=== PATIENT | female | born 1965 | race Caucasian/White ===

== ENCOUNTER 2019-12-14 16:47 | Emergency (ER) | payer SELFPAY ==
[2019-12-14 17:04] VITALS: BP 141/76; PULSE 97; RESP 16; TEMP 36.2; O2SAT 98
--- NOTE | 2019-12-14 17:13 | ED.SKABFB ---
HPI - Skin/Abscess/Foreign Bdy General Chief complaint: Skin/Abscess/Foreign Body Stated complaint: laceration Time Seen by Provider: 12/14/19 17:13 Source: patient Mode of arrival: ambulatory Limitations: no limitations History of Present Illness HPI narrative: Adamaris Simeon is a 54 yo female with a PMH ofheart murmur and smoking, [facility] with a 1/2 cm lac of the left hand between fingers 4 and 5, or webbing of hand. Controlled bleeding. Tetanus current Related Data Home Medications Medication Instructions Recorded Confirmed No Home Medications 12/14/19 12/14/19 Allergies Allergy/AdvReac Type Severity Reaction Status Date / Time No Known Allergies Allergy Unverified 04/07/16 16:33 Review of Systems Review of Systems: Narrative: CONSTITUTIONAL: Denies fever, chills, sweats. EYES: Denies visual changes, redness, discharge. ENT: Denies rhinorrhea, congestion, sore throat, otalgia. CARDIOVASCULAR: Denies chest pain, palpitations, edema. RESPIRATORY: Denies dyspnea, wheezing, cough GASTROINTESTINAL: Denies abdominal pain, nausea, vomiting, diarrhea. GENITOURINARY: Denies dysuria, hematuria, abnormal discharge SKIN: Denies rash or itching. Small lack on dorsum of hand between fingers 4-5 near webbing NEUROLOGIC: Denies numbness, or focal weakness. PSYCHIATRIC: Denies anxiety or depression. [facility] Family History Family History Other No active medical problems Social History Social History (Updated 12/14/19 @ 17:16 by Alayna Sherman CNP) Smoking status: Current every day smoker Alcohol intake: never Comments At time of signature, I agree with nursing past medical, surgical, social and family history. There is no relevant family history pertinent to the presenting complaint. Elevated BP here today- referred to pcp for follow up Exam Narrative: Exam Narrative: GENERAL: This is a well-nourished, well-developed patient, in mild distress. HEAD: normocephalic, atraumatic. EYES: clear/white. Vision is grossly intact. EARS: External ears normal, . Hearing grossly intact. NOSE: External nose normal without nasal discharge, nares without redness, no rhinorrhea. THROAT: Mucous membranes moist, NECK: Neck supple, CARDIOVASCULAR: Regular rate and rhythm without murmurs, gallops, or rubs. RESPIRATORY: Clear to auscultation. Breath sounds equal bilaterally. No wheezes, rales, or rhonchi. GASTROINTESTINAL: Abdomen soft, SKIN: warm, intact with no suspicious lesions ; small laceration dorsum L hand, 1.5 cm superficial , near webbing fingers 4/5 NEURO: awake, alert, and oriented to person, place and time. There were no obvious focal neurologic abnormalities. Steady gait EXTREMITIES: Normal range of motion. BACK: Nontender without deformity Course Course Emergency Course: superficial lac repair follow up with pcp Vital Signs Vital signs: Vital Signs Temperature 97.2 F L 12/14/19 17:04 Pulse Rate 97 12/14/19 17:04 Respiratory Rate 16 12/14/19 17:04 Blood Pressure 141/76 H 12/14/19 17:04 Pulse Oximetry 98 12/14/19 17:04 Temperature 97.2 F L 12/14/19 17:04 Pulse Rate 97 12/14/19 17:04 Respiratory Rate 16 12/14/19 17:04 Blood Pressure 141/76 H 12/14/19 17:04 Pulse Oximetry 98 12/14/19 17:04 Procedures Laceration Laceration 1: Date: 12/14/19 Time: 17:30 Site: upper extremity Side (If applicable): left Size (cm): 1.5 Description: linear Depth: simple, single layer Pre-repair: irrigated ====== Skin Level ====== Skin layer closed with: dermabond and steri strips ====== Subcutaneous Layer ====== ====== Muscle Layer ====== ====== Tendon Layer ====== Dressing: Hand dressed after glue dried. MDM - Skin/Abscess/Foreign Bdy Differential Diagnosis Differential diagnosis: Likely other (laceration of denton
== END 2019-12-14 17:56 | disposition home or self-care (01) ==
PROVIDERS: Emergency Provider Nurse Practitioner
DX: S61.412A Laceration without foreign body of left hand, initial encounter (principal); F17.210 Nicotine dependence, cigarettes, uncomplicated; X58.XXXA Exposure to other specified factors, initial encounter
CPT/HCPCS: 12001; 99212; G0463

== ENCOUNTER 2021-09-29 11:47 | Emergency (ER) | payer OTHER, SELFPAY ==
[2021-09-29 11:56] VITALS: BP 110/73; PULSE 97; RESP 16; TEMP 36.8; O2SAT 98
--- NOTE | 2021-09-29 12:00 | ED.URI ---
HPI - URI/Sore Throat General Chief Complaint: Upper Respiratory Infection Stated Complaint: cp Time Seen by Provider: 09/29/21 12:00 Source: patient Mode of arrival: ambulatory Limitations: no limitations History of Present Illness HPI Narrative: 56 yo F presents with c/o chest congestion, cough for 4 days. On the first two days had fatigue and chills. Is feeling better but reports still has green sputum. Deneis SOB/CP. taking mucinex. Thinks she may need antibiotic. Refusing covid and flu swab. All systems reviewed and negative except as noted above. Related Data Allergies Allergy/AdvReac Type Severity Reaction Status Date / Time No Known Allergies Allergy Unverified 09/29/21 11:51 Review of Systems Review of Systems: CONSTITUTIONAL: Denies fever, chills, or sweats. EYES: Denies visual changes, redness, or discharge. ENT: Denies rhinorrhea, congestion, sore throat, or otalgia. CARDIOVASCULAR: Denies chest pain, palpitations, or edema. RESPIRATORY: Reports cough and chest congestion. Denies dyspnea. GASTROINTESTINAL: Denies abdominal pain, nausea, vomiting, or diarrhea. GENITOURINARY: Denies dysuria or hematuria. SKIN: Denies rash or itching. MUSCULOSKELETAL: Denies back pain, joint pain, or myalgia. NEUROLOGIC: Denies headache, numbness, or weakness. PSYCHIATRIC: Denies anxiety or depression. All other systems reviewed are negative, except as documented in HPI. PMFSH Family History Family History Other No active medical problems Social History Social History (Updated 12/14/19 @ 17:16 by Alayna Sherman CNP) Smoking status: Current every day smoker Alcohol intake: never Comments At time of signature, agree with nursing past medical, surgical, social and family history. There is no relevant family history pertinent to the presenting complaint. Exam Narrative: GENERAL: This is a well-nourished, well-developed patient, in no apparent distress. HEAD: normocephalic, atraumatic. EYES: PERRL. Sclera clear/white. Vision is grossly intact. EARS: External ears normal, auditory canals clear and without drainage, TMs normal without perforation. Hearing grossly intact. NOSE: External nose normal with no obvious nasal discharge, nares without redness, no rhinorrhea. THROAT: Mucous membranes moist, posterior pharynx clear. NECK: Neck supple, non-tender without lymphadenopathy, masses or thyromegaly. CARDIOVASCULAR: Regular rate and rhythm without murmurs, gallops, or rubs. RESPIRATORY: Lung sounds decreased throughout all lung carranza but clear. Patient is current everyday smoker. GASTROINTESTINAL: Abdomen soft, non-tender, nondistended. Bowel sounds are active. No hepato-splenomegaly, or palpable masses. No guarding. SKIN: warm, Dry, intact with no suspicious lesions or rash, good texture and turgor. NEURO: awake, alert, and oriented to person, place and time. There were no obvious focal neurologic abnormalities. EXTREMITIES: No joint tenderness, effusion, or edema noted. No calf tenderness. Negative Homans sign bilaterally. BACK: Nontender without deformity. No CVA tenderness. Course Course Level of Care: Express Care Visit Vital Signs Vital signs: Vital Signs Temperature 36.8 C 09/29/21 11:56 Pulse Rate 97 09/29/21 11:56 Respiratory Rate 16 09/29/21 11:56 Blood Pressure 110/73 09/29/21 11:56 Pulse Oximetry 98 09/29/21 11:56 Temperature 36.8 C 09/29/21 11:56 Pulse Rate 97 09/29/21 11:56 Respiratory Rate 16 09/29/21 11:56 Blood Pressure 110/73 09/29/21 11:56 Pulse Oximetry 98 09/29/21 11:56 Reviewed MDM - URI/Sore Throat MDM Narrative Medical decision making narrative: Patient is aware of diagnosis, understands and agrees to treatment plan. Anticipatory guidance given. Patient agrees to follow-up as directed and is aware of reasons to seek care at the emergency department. Portions of this record may have been created wit
== END 2021-09-29 12:15 | disposition home or self-care (01) ==
PROVIDERS: Emergency Provider Nurse Practitioner Family
DX: J06.9 Acute upper respiratory infection, unspecified (principal); F17.200 Nicotine dependence, unspecified, uncomplicated
CPT/HCPCS: 99213; G0463

== ENCOUNTER 2021-10-27 14:34 | Outpatient (CLI) | payer OTHER, SELFPAY ==
--- NOTE | ~2021-10-27 | XR_ITS ---
EXAM: XR hand BI arthritis min 3V HISTORY: M79.641 - Pain, STIFFNESS, SWELLING IN HANDS, NO INJ COMPARISON: None available FINDINGS: Normal mineralization. Scattered mild joint space narrowing and osteophytosis primarily wi thin the DIPs but also present in the DIPs and MCP joints of both hands. No abnormal calcification. N o erosion. No subluxation. 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 Reviewed, dictated and finalized at location K.
== END 2021-10-27 14:35 | disposition home or self-care (01) ==
PROVIDERS: PCP Nurse Practitioner; Visit Provider Nurse Practitioner
DX: M19.041 Primary osteoarthritis, right hand (principal); M19.042 Primary osteoarthritis, left hand
CPT/HCPCS: 73130

== ENCOUNTER 2022-01-27 09:13 | Outpatient (CLI) | payer OTHER, SELFPAY ==
--- NOTE | ~2022-01-27 | MM_ITS ---
EXAMINATION: MM screening lenora BI w robert HISTORY: Screening TECHNIQUE: Craniocaudal and mediolateral oblique 3-D tomosynthesis images were obtained and synthetic 2-D images were generated. CAD analysis was submitted and interpreted. COMPARISON: No prior mammogram is available for comparison at this institution. BREAST PARENCHYMAL COMPOSITION: The breasts are heterogenously dense, which may obscure small masses FINDINGS: There is no evidence of suspicious mass, calcification, or architectural distortion to sugg est malignancy in either breast. There has been no suspicious interval change. IMPRESSION: 1. No mammographic evidence of malignancy. 2. Recommend routine screening mammography in one year. BI-RADS Category 1: Negative Reviewed, dictated and finalized at location A.
== END 2022-01-27 09:14 | disposition home or self-care (01) ==
PROVIDERS: PCP Nurse Practitioner; Visit Provider Nurse Practitioner
DX: Z12.31 Encounter for screening mammogram for malignant neoplasm of breast (principal)
CPT/HCPCS: 77063; 77067

== ENCOUNTER 2023-08-11 16:51 | Emergency (ER) | payer OTHER, SELFPAY ==
[2023-08-11 17:00] VITALS: BP 140/85; PULSE 102; RESP 16; TEMP 37; O2SAT 98
--- NOTE | 2023-08-11 17:09 | ED.GENADULT ---
HPI - General Adult General Chief complaint: Fever Stated complaint: Fever Time Seen by Provider: 08/11/23 17:02 Source: patient Mode of arrival: ambulatory Limitations: no limitations History of Present Illness HPI narrative: 38-year-old female presents concern for going back to work after being sick. 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 She reports she had some nausea, vomiting, headache, body aches, diarrhea. Denies any current symptoms MD complaint: Work clearance Related Data Home Medications Medication Instructions Recorded Confirmed No Home Medications 10/22/21 08/11/23 Allergies Allergy/AdvReac Type Severity Reaction Status Date / Time No Known Allergies Allergy Verified 08/11/23 17:03 Review of Systems Review of Systems: CONSTITUTIONAL: Denies malaise, chills, sweats, or fever. EYES: Denies visual changes, redness, or discharge. ENT: Denies rhinorrhea, congestion, sinus pain, otalgia and sore throat. CARDIOVASCULAR: Denies chest pain, palpitations, or edema. RESPIRATORY: Reports cough. Denies dyspnea. GASTROINTESTINAL: Denies abdominal pain, nausea, vomiting, diarrhea SKIN: Denies rash or itching. ABD: Denies nausea, vomiting, diarrhea, abdominal pain MUSCULOSKELETAL: Denies myalgia. NEUROLOGIC: Denies headache. All systems reviewed & are unremarkable except as noted in HPI and below PMFSH Surgical History Surgical History (Updated 10/22/21 @ 07:36 by Justice Murphy APRN) History of Family History Family History (Updated 10/22/21 @ 07:20 by Alfonzo Mckeon MA) Grandparent Diabetes mellitus Mother Kidney cancer, primary, with metastasis from kidney to other site Father Cirrhosis Other No active medical problems Social History Social History (Updated 10/22/21 @ 07:38 by Justice Murphy APRN) Smoking packs per day: 1 Smoking cigarettes per day: 20.0 Years smoked: 30 Smoking pack-years: 30.00 Smoking status: Current every day smoker Second hand tobacco smoke exposure: No Alcohol intake: never Substance use: never Substance use type: marijuana Living arrangements: with family Occupation/Education: occupation 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 There is no relevant family history pertinent to the presenting complaint Exam Narrative: GENERAL: Well-appearing, well-nourished, and in no acute distress. HEAD: Normocephalic EYES: PERRLA, conjunctivae clear ENT: Nares clear. Mucous membranes moist. TM pearly matthews with sharp light reflex bilaterally; no tragal tenderness. Oropharynx not erythematous without lesions. Tonsils not enlarged and without exudate, no drooling, no hoarseness, no trismus, uvula midline. NECK: Supple. No lymphadenopathy CHEST: Clear to auscultation, breath sounds equal. No wheezing, rhonchi, rales, or stridor. No respiratory distress, speaks in full sentences. HEART: Regular rate and rhythm. No murmur heard. SKIN: Warm, dry, no rash. NEURO: Alert and oriented x3. PSYCH: Normal mood and affect Course Course Emergency Course: Patient is aware of diagnosis, understands and agrees to treatment plan. Anticipatory guidance given. Patient agrees to follow-up as directed and is aware of reasons to seek care at the emergency department. Portions of this record may have been created with voice recognition software Level of Care: Express Care Visit Vital Signs Vital signs: Vital Signs Temperature 98.6 F 08/11/23 17:00 Pulse Rate 102 H 08/11/23 17:00 Respiratory Rate 16 08/11/23 17:00 Blood Press
== END 2023-08-11 17:15 | disposition home or self-care (01) ==
PROVIDERS: Emergency Provider Nurse Practitioner; PCP Nurse Practitioner
DX: B34.9 Viral infection, unspecified (principal); F17.210 Nicotine dependence, cigarettes, uncomplicated
CPT/HCPCS: 99211; G0463

== ENCOUNTER 2024-07-19 18:53 | Emergency (ER) | payer SELFPAY ==
[2024-07-19 19:05] VITALS: BP 114/68; PULSE 77; RESP 16; TEMP 36.4; O2SAT 97
[2024-07-19 19:17] LABS: EDCOVIDSCREEN Negative (Negative)
--- NOTE | 2024-07-19 19:17 | ED_ITS ---
HPI - URI/Sore Throat General Chief Complaint: Upper Respiratory Infection Stated Complaint: Bodyaches/Vomiting Time Seen by Provider: 07/19/24 19:17 Source: patient Mode of arrival: ambulatory Limitations: no limitations History of Present Illness HPI Narrative: Mikayla is a 59-year-old female patient presenting to the clinic today with complaints body aches, headache, vomiting, chills, and nausea. She reports s ymptoms started 1 week ago. Her symptoms have improved but she is wanting to make sure she is okay to go back to work tomorrow. She states she has been fever free for the last 24 hours. No nausea or vomiting. States overall she feels like she is on the mend. MD elicited complaint: sore throat and nasal congestion Related Data Home Medications ?Medication ?Instructions ?Recorded ?Confirmed ?Last Taken ?Type No Home Medications 10/22/21 07/19/24 Unknown History Allergies Allergy/AdvReac Type Severity Reaction Status Date / Time No Known Allergies Allergy Verified 07/19/24 18:59 Review of Systems Review of Systems: Pertinent positives per HPI. Patient denies any fever, rash, visual changes, dizziness, shortness of breath, chest pain, palpitations, diarrhea, constipation, abdominal pain, or any urinary issues. [facility] Surgical History Surgical History History of Family History Family History (Updated 10/22/21 @ 07:20 by Alfonzo Mckeon MA) Grandparent Diabetes mellitus Mother Kidney cancer, primary, with metastasis from kidney to other site Father Cirrhosis Other No active medical problems Social History Social History (Updated 10/22/21 @ 07:38 by Justice Murphy APRN) Smoking packs per day: 1 Smoking cigarettes per day: 20.0 Years smoked: 30 Smoking pack-years: 30.00 Smoking status: Current every day smoker Second hand tobacco smoke exposure: No Alcohol intake: never Substance use: never Substance use type: marijuana Living arrangements: with family Occupation/Education: occupation 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 There is no relevant family history pertinent to the patient complaint. Exam Narrative: General: Well-developed, well nourished, in no apparent distress Head: Normocephalic, atraumatic Eyes: Pupils equally round and reactive to light bilaterally, EOM intact, sclera and conjunctive clear, no discharge, lids normal Ears: TMs intact and clear, ear canals clear, no drainage, grossly hearing normal. Nose: Nares patent, no discharge, no inflammation, no sinus tenderness. Mouth: Oral pharynx without lesions or masses, good dentition, MMM. Neck: Supple, trachea midline, no enlargement of anterior or posterior cervical nodes, no thyroid masses or goiter palpable. Cardio: Regular rate and rhythm, s1 and s2 normal, no murmur appreciated. Resp: Clear to auscultation bilaterally, no rhonchi, rales, wheezing or rubs Course Course Emergency Course: Portions of this record may have been created with voice recognition software. Level of Care: Express Care Visit Vital Signs Vital signs: Vital Signs Temperature 36.4 C L 07/19/24 19:05 Pulse Rate 77 07/19/24 19:05 Respiratory Rate 16 07/19/24 19:05 Blood Pressure 114/68 07/19/24 19:05 Pulse Oximetry 97 07/19/24 19:05 Oxygen Delivery Room Air 07/19/24 19:05 Temperature 36.4 C L 07/19/24 19:05 Pulse Rate 77 07/19/24 19:05 Respiratory Rate 16 07/19/24 19:05 Blood Pressure 114/68 07/19/24 19:05 Pulse Oximetry 97 07/19/24 19:05 Oxygen Delivery Room Air 07/19/24 19:05 Vital signs reviewed MDM - URI/Sore Throat MDM Narrative Medical decision making narrative: At the time of visit patient is resting comfortably on the exam table. Patient appears to be nontoxic. I suspect patient has viral syndrome. Patient reports she is feeling better and she feels as though she can go to work tomorrow. She has been fever free for 24 hours use of Tylenol or Motrin. Supportive measures were discussed with the patient and they voiced understanding discharge instructions and agrees to treatment plan. Return precautions reviewed Differential Diagnosis Differential diagnosis: Likely upper respiratory infection, otitis media, sinusitis, viral infection, bronchitis, influenza, pharyngitis and other (COVID) Lab Data Labs: Lab Results 07/19/24 Range/Units 19:14 POC SARS CoV-2 Ag Negative (Negative) Discharge Plan Discharge Clinical Impression: Acute viral syndrome Patient Disposition: Home, Self-Care Condition: Stable Instructions: Antibiotic Form, Viral Syndrome (ED) Additional Instructions: COVID and influenza testing were both negative Increase fluids and stay well hydrated Tylenol/motrin for pain/fever Flonase and OTC antihistamines as directed Vicks vapor rub to open sinuses Sinus rinses for congestion Cepacol spray, cough drops, throat lozenges, warm tea with honey/lemon, gargle salt water to soothe throat BRAT diet for diarrhea Clear liquids x 24 hours then advance as tolerated for nausea/vomiting Go to the ED if you develop a worsening in your condition- high fever not controlled by Tylenol or Motrin, dehydration, weakness, lethargy, shortness of breath, or chest pain. Follow up with your PCP in 3-5 days if symptoms persist. Patient Language: Singaporean Prescriptions: No Action No Home Medications Follow-up/Referrals: Justice Murphy APRN [Primary Care Provider] - Time of Disposition: 19:20 Quality NIHSS Nursing Documentation ED NIHSS nursing documentation: reviewed/agree
[2024-07-19 19:18] LABS: EDINFLUASCREEN Negative (Negative); EDINFLUBSCREEN Negative (Negative)
== END 2024-07-19 19:23 | disposition home or self-care (01) ==
PROVIDERS: Emergency Provider Nurse Practitioner Family; PCP Nurse Practitioner
DX: B34.9 Viral infection, unspecified (principal); Z20.822 Contact with and (suspected) exposure to COVID-19
CPT/HCPCS: 87426; 87804; 99212; G0463